=== PATIENT | male | born 1980 | race Caucasian/White ===

== ENCOUNTER 2020-06-15 10:37 | Emergency (ER) | payer MEDICAID, SELFPAY ==
[~2020-06-15] VITALS: Ht 162.6 cm; Wt 68.0 kg
[2020-06-15 10:53] VITALS: Ht 162.6 cm; Wt 68.0 kg
[2020-06-15 11:50] LABS: PLATELET COUNT 251 x10^3mcL (152-348); RED CELL DISTRIBUTION WIDTH 13.5 % (12.1-16.2)
[2020-06-15 12:08] LABS: T3 TOTAL 1.22 ng/mL
[2020-06-15 12:16] LABS: FREE T4 0.77 ng/dL (0.76-1.46); T4(THYROXINE) 6.4 ug/dL (4.7-13.3)
[2020-06-15 12:47] LABS: CARBON DIOXIDE 28.2 mmol/L (21-32); POTASSIUM SERUM 4.6 mmol/L (3.5-5.1)
[2020-06-15 12:48] LABS: ALBUMIN 4.4 g/dL (3.4-5.0)
[2020-06-15 12:49] LABS: BILIRUBIN TOTAL 0.6 mg/dL (0.20-1.00); C REACTIVE PROTEIN 0.2 mg/dL (<=0.9)
[2020-06-15 12:51] LABS: CREATININE SERUM 8.7 mg/dL (0.7-1.3)
[2020-06-15 12:56] LABS: CK-MB 5.8 ng/mL (0-3.6)
[2020-06-15 14:25] LABS: ERYTHROCYTE SED RATE 19 mm/hr (0-15)
[2020-06-15 14:36] VITALS: BP 148/94
== END 2020-06-15 15:14 | disposition home or self-care (01) ==
LOC: ED 10:37
PROVIDERS: Specialist
DX: I12.0 Hypertensive chronic kidney disease with stage 5 chronic kidney disease or end stage renal disease (principal); R07.89 Other chest pain; N18.6 End stage renal disease; Z99.2 Dependence on renal dialysis; Z94.0 Kidney transplant status
CPT/HCPCS: 36600; 84439; U0003